=== PATIENT | female | born 1975 | race Caucasian/White ===

== ENCOUNTER 2018-05-26 14:38 | Emergency (ER) | payer BC, SELFPAY ==
[2018-05-26 15:29] LABS: #Basophils 0.1 thou/uL (0.0-0.2); #Eosinphils 0.4 thou/uL (0.0-0.7); #Lymphocytes 4.1 thou/uL (1.20-3.40); #Monocytes 0.6 thou/uL (0.11-0.59); #Neutrophils 4.1 thou/uL (1.40-6.50); %Basophils 1.5 % (0.0-1.0); %Eosinophils 4.4 % (0.0-10.0); %Lymphocytes 43.8 % (21.0-51.0); %Monocytes 6.2 % (0.0-10.0); Hemoglobin 15.5 g/dL (12.0-16.0); Mean Corpuscular HGB CONC 33.2 g/dL (32.0-36.0); Mean Corpuscular Hemoglobin 30.1 pg (27.0-31.0); Mean Corpuscular Volume 90.7 fL (78.0-98.0); Mean Platelet Volume 5.7 fL (7.4-10.4); Platelet Count 389 thou/uL (130-400); RBC Distribution Width 12.4 % (11.5-14.5); Red Blood Cell (RBC) Count 5.14 mill/uL (4.20-5.40); White Blood Cell (WBC) Count 9.3 thou/uL (4.8-10.8)
[2018-05-26 15:41] LABS: Bilirubin Negative (Negative); Blood, Urine Negative (Negative); Clarity CLEAR (Clear); Glucose, Urine (Dipstick) Negative (Negative); Leukocyte Negative (Negative); Nitrite Negative (Negative); Protein, Urine (Dipstick) Negative (Neg-Trace); Specific Gravity, Urine 1.004 (1.002-1.036); Urobilinogen 0.2 mg/dL (0.2-1.0); pH, Urine 6.5 (5.0-9.0)
--- NOTE | 2018-05-26 15:46 | RAD ---
TWO VIEW CHEST: 05/26/18 HISTORY: Chest pain with wheezing. Lungs are clear. No infiltrates seen. The heart and mediastinum unremarkable. Osseous structures unre markable. IMPRESSION: Unremarkable chest. POS: [facility]
[2018-05-26 15:49] LABS: ALT (SGPT) 12 U/L (8-55); AST (SGOT) 13 U/L (5-34); Albumin 4.3 g/dL (3.5-5.0); Alkaline Phosphatase 97 U/L (40-150); Anion Gap 14 mmol/L (10-20); BUN (Urea Nitrogen) 7 mg/dL (7.0-18.7); Bilirubin, Total 0.3 mg/dL (0.2-1.2); CK (CPK) 76 U/L (29-168); Calc. Creatinine Clearance 0 mL/min (70-130); Calcium 9.6 mg/dL (7.8-10.44); Carbon Dioxide 23 mmol/L (22-29); Chloride 107 mmol/L (98-107); Estimated GFR-MDRD 84; Globulin 2.9 g/dL (2.4-3.5); Glucose 93 mg/dL (70-105); Potassium 3.9 mmol/L (3.5-5.1); Protein, Total 7.2 g/dL (6.0-8.3); Sodium 140 mmol/L (136-145)
[2018-05-26 16:08] LABS: Troponin I Less than 0.010 ng/mL (< 0.028)
[2018-05-26] MEDS ORDERED: methylPREDNISolone Sod Succ/PF 125 MG/2 ML VIAL ONE (16:22)
[2018-05-26] MEDS ORDERED: Albuterol Sulfate 2.5 mg/0.5 ml Neb ONE (16:31)
[2018-05-26] MEDS ORDERED: Ketorolac Tromethamine 30 MG/ML VIAL ONE (16:32)
== END 2018-05-26 17:44 | disposition home or self-care (01) ==
LOC: ERS 14:38
DX: J44.1 Chronic obstructive pulmonary disease with (acute) exacerbation (principal); Z71.6 Tobacco abuse counseling; F17.210 Nicotine dependence, cigarettes, uncomplicated; F31.9 Bipolar disorder, unspecified; G43.909 Migraine, unspecified, not intractable, without status migrainosus; Z79.899 Other long term (current) drug therapy
CPT/HCPCS: 71046; 80053; 81003; 82550; 82553; 84484; 85025; 93005; 96374; 96375; 99406; J1885; J2930; J7611

== ENCOUNTER 2018-06-06 02:47 | Emergency (ER) | payer BC ==
[2018-06-06 03:44] LABS: #Basophils 0.1 thou/uL (0.0-0.2); #Eosinphils 0.2 thou/uL (0.0-0.7); #Lymphocytes 4.1 thou/uL (1.20-3.40); #Monocytes 0.8 thou/uL (0.11-0.59); #Neutrophils 5.9 thou/uL (1.40-6.50); %Basophils 1.1 % (0.0-1.0); %Eosinophils 2.1 % (0.0-10.0); %Lymphocytes 37.2 % (21.0-51.0); %Neutrophils 52.7 % (42.0-75.0); Hemoglobin 14.7 g/dL (12.0-16.0); Mean Corpuscular HGB CONC 33.9 g/dL (32.0-36.0); Mean Corpuscular Hemoglobin 30.9 pg (27.0-31.0); Mean Corpuscular Volume 91.2 fL (78.0-98.0); Mean Platelet Volume 5.8 fL (7.4-10.4); Platelet Count 344 thou/uL (130-400); RBC Distribution Width 12.5 % (11.5-14.5); Red Blood Cell (RBC) Count 4.75 mill/uL (4.20-5.40); White Blood Cell (WBC) Count 11.1 thou/uL (4.8-10.8)
[2018-06-06 04:01] LABS: ALT (SGPT) 16 U/L (8-55); AST (SGOT) 13 U/L (5-34); Albumin 3.9 g/dL (3.5-5.0); Alkaline Phosphatase 79 U/L (40-150); Anion Gap 11 mmol/L (10-20); BUN (Urea Nitrogen) 12 mg/dL (7.0-18.7); Bilirubin, Total 0.2 mg/dL (0.2-1.2); Calc. Creatinine Clearance 0 mL/min (70-130); Calcium 9.3 mg/dL (7.8-10.44); Carbon Dioxide 23 mmol/L (22-29); Chloride 107 mmol/L (98-107); Estimated GFR-MDRD 87; Globulin 2.5 g/dL (2.4-3.5); Glucose 92 mg/dL (70-105); Lipase 14 U/L (8-78); Potassium 4.2 mmol/L (3.5-5.1); Protein, Total 6.4 g/dL (6.0-8.3); Sodium 137 mmol/L (136-145)
[2018-06-06 04:04] LABS: CKMB 0.8 ng/mL (0-6.6); Troponin I Less than 0.010 ng/mL (< 0.028)
--- NOTE | 2018-06-06 08:20 | RAD ---
PORTABLE CHEST 1 VIEW: Date: 06/06/18 Time: 0220 hours HISTORY: Wheezing and chest pain. COMPARISON: 05/26/18. FINDINGS: The heart size is normal. The lungs are expanded without focal areas of consolidation, pneumothoraces , or pleural effusions. IMPRESSION: No radiographic evidence of acute cardiopulmonary process. POS: [facility]
== END 2018-06-06 04:33 | disposition home or self-care (01) ==
LOC: ERS 02:47
DX: R07.89 Other chest pain (principal); J45.909 Unspecified asthma, uncomplicated; F31.9 Bipolar disorder, unspecified; F17.210 Nicotine dependence, cigarettes, uncomplicated; G43.909 Migraine, unspecified, not intractable, without status migrainosus; Z79.899 Other long term (current) drug therapy
CPT/HCPCS: 36415; 71045; 80053; 82553; 83690; 83735; 84484; 85025; 93005

== ENCOUNTER 2018-06-09 07:24 | Observation (INO) | payer BC ==
[2018-06-09] MEDS ORDERED: Regadenoson 0.4 MG/5 ML SYRINGE ONE (07:50)
[2018-06-09] MEDS ORDERED: Metoclopramide HCl 10 MG/2 ML VIAL ONE (08:07)
[2018-06-09] MEDS ORDERED: diphenhydrAMINE 50 MG/ML VIAL ONE (08:10)
[2018-06-09 08:17] LABS: #Basophils 0.1 thou/uL (0.0-0.2); #Eosinphils 0.3 thou/uL (0.0-0.7); #Lymphocytes 2.9 thou/uL (1.20-3.40); #Monocytes 0.8 thou/uL (0.11-0.59); #Neutrophils 7.7 thou/uL (1.40-6.50); %Eosinophils 2.6 % (0.0-10.0); %Lymphocytes 24.4 % (21.0-51.0); %Monocytes 6.5 % (0.0-10.0); %Neutrophils 65.5 % (42.0-75.0); Mean Corpuscular HGB CONC 32.3 g/dL (32.0-36.0); Mean Corpuscular Hemoglobin 29.9 pg (27.0-31.0); Mean Corpuscular Volume 92.4 fL (78.0-98.0); Mean Platelet Volume 5.9 fL (7.4-10.4); Platelet Count 369 thou/uL (130-400); RBC Distribution Width 12.6 % (11.5-14.5); Red Blood Cell (RBC) Count 5.03 mill/uL (4.20-5.40); White Blood Cell (WBC) Count 11.8 thou/uL (4.8-10.8)
[2018-06-09 08:38] LABS: ALT (SGPT) 18 U/L (8-55); AST (SGOT) 13 U/L (5-34); Alkaline Phosphatase 92 U/L (40-150); Anion Gap 10 mmol/L (10-20); BUN (Urea Nitrogen) 8 mg/dL (7.0-18.7); Bilirubin, Total 0.4 mg/dL (0.2-1.2); Calc. Creatinine Clearance 0 mL/min (70-130); Calcium 9.2 mg/dL (7.8-10.44); Carbon Dioxide 25 mmol/L (22-29); Chloride 108 mmol/L (98-107); Estimated GFR-MDRD 83; Globulin 2.8 g/dL (2.4-3.5); Glucose 83 mg/dL (70-105); Potassium 4.2 mmol/L (3.5-5.1); Protein, Total 6.8 g/dL (6.0-8.3); Sodium 139 mmol/L (136-145)
[2018-06-09 08:43] LABS: CKMB 0.4 ng/mL (0-6.6); Troponin I Less than 0.010 ng/mL (< 0.028)
--- NOTE | 2018-06-09 09:21 | RAD ---
PORTABLE CHEST 1 VIEW: Date: 06/09/18 HISTORY: 43-year-old female with history of chest pain and palpitations. Bilateral feet swelling. COMPARISON: 06/06/18. FINDINGS: Monitor leads overlie the chest. Heart size within normal limits. The lungs are clear. IMPRESSION: No acute intrathoracic disease. Stable from prior study. POS: [facility]
[2018-06-09] MEDS ORDERED: Calcium Carbonate 500 MG ChewTAB PO PRN (10:26)
[2018-06-09] MEDS ORDERED: Acetaminophen 325 MG TAB PO PRN (10:26)
[2018-06-09] MEDS ORDERED: Nitroglycerin 0.4 MG TAB (25 Tab Bottle) PO PRN (10:26)
[2018-06-09] MEDS ORDERED: Ondansetron HCl/PF 4 MG/2 ML Vial IVP PRN (10:26)
[2018-06-09] MEDS ORDERED: Milk Of Magnesia 30 ML UDCUP PO PRN (10:26)
[2018-06-09] MEDS ORDERED: Mag-Al 1200 mg/1200 mg/30 ML UDCUP PO PRN (10:26)
[2018-06-09] MEDS ORDERED: Ondansetron ODT 4 MG TAB PO PRN (10:26)
[2018-06-09] MEDS ORDERED: Aspirin 325 mg Enteric Coated Tablet PO SCH (10:30)
[2018-06-09 10:57] VITALS: BMI 34.7
--- NOTE | 2018-06-09 11:19 | HP ---
DATE OF ADMISSION: 06/09/2018 PRIMARY CARE PHYSICIAN: In [place]. Patient is planning to change her primary care physician to [facility] in [place]. CHIEF COMPLAINT: Palpitations. HISTORY OF PRESENT ILLNESS: Patient is a 43-year-old female with ongoing tobacco abuse, daily caffei ne use and family history of heart disease who presented to the hospital with palpitations that has b een ongoing for a week or so. It is constant throughout the day without any aggravating or relieving factor. Yesterday, she felt lightheaded, dizzy, and she was almost going to pass out. She had some chest pressure 4/10 substernal earlier today for which she presented to the emergency room. She als o noticed that her legs have been swollen than usual. Ten days ago, patient was seen in the emergenc y room for medication refills. She was out of verapamil for 5 days. She is compliant with verapamil . No recent immobilization, travel reported. She occasionally gets heartburn. No cough, shortness of breath or wheezing reported. In the emergency room, initial vital signs showed temperature 98.2, respiration 18, pulse rate of 76, blood pressure of 129/82 with O2 saturation 97% on room air. Her EKG showed sinus rhythm without si gnificant ST-T wave changes. Her chest x-ray was negative for infiltrate or edema. She received Rome adryl, IV fluids and Reglan in the emergency room. PAST MEDICAL HISTORY: 1. Chronic vertigo. Patient has had extensive workup in the past. 2. Chronic migraines on p.r.n. medications. 3. Mild persistent asthma. 4. History of cervical cancer in remission. 5. Family history of heart disease. 6. Tobacco dependence. 7. Bipolar disorder. PAST SURGICAL HISTORY: 1. Tonsillectomy. 2. Tubal ligation. SOCIAL HISTORY: Patient currently lives at home, smokes on a daily basis. No alcohol or drug use. S pouse is at the bedside. FAMILY HISTORY: Strongly positive for heart disease. CURRENT HOME MEDICATIONS: Patient is unable to recall all of her home medications. She states that she takes verapamil on a daily basis. She does not take any antiplatelet agent. REVIEW OF SYSTEMS: The following complete review of systems was negative, unless otherwise mentioned in the HPI or below: Constitutional: Weight loss or gain, ability to conduct usual activities. Skin: Rash, itching. Eyes: Double vision, pain. ENT/Mouth: Nose bleeding, neck stiffness, pain, tenderness. Cardiovascular: Palpitations, dyspnea on exertion, orthopnea. Respiratory: Shortness of breath, wheezing, cough, hemoptysis, fever or night sweats. Gastrointestinal: Poor appetite, abdominal pain, heartburn, nausea, vomiting, constipation, or diarr hea. Genitourinary: Urgency, frequency, dysuria, nocturia. Musculoskeletal: Pain, swelling. Neurologic/Psychiatric: Anxiety, depression. Allergy/Immunologic: Skin rash, bleeding tendency. PHYSICAL EXAMINATION: VITAL SIGNS: As discussed above. GENERAL: A 43-year-old female in no apparent distress. No chest pain at this time. HEENT: Head is atraumatic, normocephalic. Sclerae are anicteric. Moist mucous membrane, no oral le tyler. NECK: Supple, no JVD appreciated. No carotid bruit. LUNGS: Clear to auscultation bilaterally, no wheezing, rales or rhonchi. HEART: S1 and S2 present. Regular rate and rhythm. No murmur, rubs, or gallops appreciated. ABDOMEN: Soft, nontender, bowel sounds present. EXTREMITIES: No edema or calf tenderness. NEUROLOGIC: Grossly nonfocal, moves all four extremities. PSYCHIATRY: Alert, awake and oriented x3. SKIN: Warm and dry. LYMPH NODES: No palpable lymph nodes in the neck. PERIPHERAL VASCULAR: Radial pulses palpable bilaterally. MUSCULOSKELETAL: No joint swelling or tenderness. LABORATORY DATA AND IMAGING DATA: CBC showed WBC 11.8 with hemoglobin 15, platelet count 369. Tropo maddy was negative. BNP 12.7, TSH 1.34. Magnesium was normal 2 days ago, BUN 8, creatinine 0.79, pota ssium 4.2 and chloride 139. EKG and chest x-ray by my review as discussed above. IMPRESSION: 1. Palpitations with chest discomfort. The patient has extensive family history of heart disease. She smokes on a daily basis. She also consumes caffeine on a daily basis. She was seen in the [facility] en[facility] room 10 days ago. Due to intermediate probability for coronary artery disease, we will schedule her Cardiolite stress test. We will also get echocardiogram due to palpitations. We will monitor o n telemetry for 24 hours. We will schedule outpatient cardiology followup for possible event monitor . We will start her on aspirin. We will resume verapamil. Lifestyle modification and caffeine cess ation was emphasized. 2. Hypertension. We will continue verapamil. 3. Bilateral lower extremity swelling. Echocardiogram will be obtained. Her BNP was normal. 4. Mild persistent asthma. We will add nebulizer treatment as needed. She recently had an asthma e xacerbation. 5. Tobacco dependence. Patient was extensively counseled. 6. Family history of heart disease. 7. Chronic migraines. Plan of care was discussed with the patient in detail. She stated understanding. DISPOSITION: Probably after 24 hours of telemetry monitoring.
[2018-06-09 11:45] LABS: Troponin I Less than 0.010 ng/mL (< 0.028)
[2018-06-09] MEDS ORDERED: Verapamil SR 120 MG TAB PO SCH (13:00)
[2018-06-09 15:39] LABS: Troponin I Less than 0.010 ng/mL (< 0.028)
--- NOTE | 2018-06-09 15:56 | NM ---
MYOCARDIAL PERFUSION SCAN: Date: 06/09/18 PROVIDED CLINICAL HISTORY: Chest pain. RADIOPHARMACEUTICAL: 30 mCi technetium-99m labeled sestamibi IV at stress. 9 mCi technetium-99m labeled sestamibi IV at rest. FINDINGS: There is normal, homogeneous distribution of radiotracer throughout the left ventricular myocardium. Gated data demonstrate normal myocardial wall motion and thickening. Calculated LVEF is 71%. TID is 1 .23. IMPRESSION: 1. No scintigraphic evidence for ischemia. 2. LVEF 71%. POS: [facility]
[2018-06-09] MEDS: Famotidine 20 MG TAB PO SCH (20:25)
[2018-06-09] MEDS ORDERED: Nicotine 21 MG PATCH TOP SCH (23:30)
[2018-06-10] MEDS ORDERED: Aspirin 325 mg Enteric Coated Tablet PO SCH (09:00)
[2018-06-10] MEDS ORDERED: Verapamil SR 120 MG TAB PO SCH (09:00)
[2018-06-10] MEDS: Famotidine 20 MG TAB PO SCH (10:08)
--- NOTE | 2018-06-10 10:49 | DIS ---
DATE OF ADMISSION: 06/09/2018 DATE OF DISCHARGE: 06/10/2018 DISCHARGE DISPOSITION: Home. FOLLOWUP: Follow up with primary care physician in one week. The patient will call [facility] in [place] and try to schedule with Dr. Rhonda Pearson. INPATIENT CONSULTANTS: None. The patient was seen on the day of discharge. Denies any new complaints. No chest pain, shortness o f breath, palpitations. BRIEF HOSPITAL COURSE: Patient is a 43-year-old female with ongoing tobacco abuse, family history of heart disease and daily caffeine use, presented to the hospital with palpitations. Please refer to the history and physical dated 06/09/2018 for further details. The patient was admitted to the hospital with a diagnosis of palpitations along with chest discomfort . Serial troponins were negative. TSH was 1.34. She underwent a Cardiolite stress test that was ne gative for reversible ischemia. Ejection fraction was 71%. Echocardiogram has been done, report is pending at this time. She was advised to follow up on the echocardiogram report. She was advised to discontinue smoking as well as minimize caffeine use. There was no abnormal arrhythmias noted on th e telemetry monitoring. She was advised to call Dr. Richardson, Cardiology if she has persistent palpitati ons. FINAL DIAGNOSES: 1. Palpitations, probably secondary to caffeine/nicotine, acute coronary syndrome ruled out. 2. Chest discomfort with negative troponins. 3. Negative Cardiolite stress test. 4. Hypertension. 5. Bilateral lower extremity swelling. Echocardiogram is pending at this time. The patient was adv ised to followup. 6. Mild persistent asthma. 7. Tobacco dependence. The patient was extensively counseled. 8. Chronic migraines. 9. Family history of heart disease. 10. Obesity with a BMI of 34.7. Plan of care was discussed with the patient in detail. She stated understanding.
[2018-06-10 11:49] VITALS: BP 120/73; TEMP 97.8
== END 2018-06-10 12:43 | disposition home or self-care (01) ==
LOC: ERS 07:24 → 2SW 10:46
PROVIDERS: ADMIT Internal Medicine; ATTEND Internal Medicine
DX: R00.2 Palpitations (principal); R07.89 Other chest pain; I10 Essential (primary) hypertension; F17.200 Nicotine dependence, unspecified, uncomplicated; J45.30 Mild persistent asthma, uncomplicated; E66.9 Obesity, unspecified; G43.909 Migraine, unspecified, not intractable, without status migrainosus; Z68.34 Body mass index [BMI] 34.0-34.9, adult; Z82.49 Family history of ischemic heart disease and other diseases of the circulatory system; Z79.899 Other long term (current) drug therapy
CPT/HCPCS: 36415; 71045; 78452; 80053; 82553; 83880; 84443; 84484; 85025; 93005; 93017; 93306; 94760; 96365; 96375; A9500; G0378; J1200; J2765; J2785